=== PATIENT | male | born 1955 | race Caucasian/White ===

== ENCOUNTER 2016-12-07 17:28 | Emergency (ER) | payer OTHER ==
[~2016-12-07] VITALS: Ht 185.4 cm; Wt 82.8 kg
[~2016-12-07 17:28] MED LIST: CMBIN INH; METO25TA56 PO; NICO14DI18 TD; NTRGSL/4 SL
[2016-12-07 17:34] VITALS: TEMP 36.4; Ht 185.4 cm; Wt 82.8 kg
[2016-12-07] MEDS ORDERED: ALBUT/IPRATROP 3MG/0.5MG NEB 3 ML VIAL INH STA (17:56)
[2016-12-07] MEDS ORDERED: METHYLPREDNISOLONE 125 MG VIAL IV STA (17:56)
--- NOTE | 2016-12-07 18:02 | EMERGENCY ROOM VISIT NOTE ---
History First contact with patient: 17:46 Chief Complaint: SHORTNESS OF BREATH Stated Complaint: CHEST PAIN, SOB History of Present Illness The patient is a 61 year old male who presents to the Emergency Room with complaints of dyspnea and chest pain. The patient states that he has had dyspnea for the last month. He states that the shortness of breath is worse at night. He states he gets sweaty at night. The patient states he also has intermittent chest pain on the left side of his chest and occasionally the right side of his chest. This chest pain lasts approximately 30 minutes. He rates his discomfort a 6/10. The patient states that he has having increasing difficulty performing activities of daily living due to his dyspnea. He saw his family doctor and was given prescriptions for an antibiotic, medications for asthma and a medication for his nerves. [facility] for [facility]. He could not see the [facility] or get the prescriptions filled through them so he did not fill any of the medications. The patient has no appointment with the [facility] tomorrow to get reinstated. The patient states that he feels feverish but does not have a documented fever. He denies any abdominal pain, nausea or vomiting. He denies any extremity swelling. The patient is a smoker. The patient drinks alcohol occasionally and states he had a few beers today. He states he has never had a cardiac catheterization. In the past he had been prescribed antihypertensive medications, Combivent and nitroglycerin. The patient has not been taking any of these medications. Review of Systems A 10 system review of systems was completed with positives and pertinent negatives listed in the HPI. Past Medical/Surgical History Medical Problems: (1) Elevated blood pressure reading without diagnosis of hypertension (2) SHORTNESS OF BREATH (3) Wheezing Social History Smoking Status: Current Some Day Smoker Alcohol Use: occasionally Marital Status: Current/Historical Medications No Active Prescriptions or Reported Meds Allergies Coded Allergies: No Known Drug Allergy (Verified Allergy, Unknown, ., 12/07/16) Physical Exam Vital Signs Date Time Temp Pulse Resp B/P (MAP) Pulse Ox O2 Delivery O2 Flow Rate FiO2 12/07/16 19:49 65 20 138/96 96 Room Air 12/07/16 18:55 66 19 134/94 95 Room Air 12/07/16 18:53 93 Room Air 12/07/16 17:34 36.4 82 18 130/77 92 Room Air Physical Exam VITALS: Vitals are noted on the nurse's note and reviewed by myself. Vital signs stable. The patient's oxygen saturation is 92% on room air. He is not tachycardic or febrile. GENERAL: This is a 61-year-old male, in no acute distress, nondiaphoretic, well- developed well-nourished. SKIN: The skin was without rashes, erythema, edema, or bruising. There is no tenting of the skin. Capillary reflex less than 2 seconds. HEAD: Normocephalic atraumatic. EARS: The external ears are normal in appearance. The right ear reveals an effusion with bubbles. There is no significant erythema. There is cerumen impaction in the left external auditory canal. EYES: Pupils equal round and reactive to light and accommodation. Conjunctivae without injection, sclerae without icterus. Extraocular movements intact. NOSE: Patent, turbinates without inflammation or discharge. No sinus tenderness. MOUTH: Mucous membranes dry. Tonsils are not enlarged. Pharynx without erythema or exudate. Uvula midline. Airway patent. Tongue does not deviate. NECK: Supple without nuchal rigidity. No lymphadenopathy. No thyromegaly. Cervical spine is nontender. No JVD. HEART: Regular rate and rhythm without murmurs gallops or rubs. LUNGS: Moderate scattered expiratory wheezes. No retractions or accessory muscle use. ABDOMEN: Positive bowel sounds x 4. Soft, nontender, without masses or organomegaly. MUSCULOSKELETAL: No muscle atrophy, erythema, or edema noted. Full range of motion in all extremities. Normal gait. Strength 5/5 throughout. NEURO: Patient was alert and oriented to person place and time. No focal neurological deficits. Medical Decision & Procedures ER Provider Diagnostic Interpretation: CHEST ONE VIEW PORTABLE HISTORY: cough, dyspnea, atypical chest pain COMPARISON: Chest 06/04/2011. FINDINGS: No pleural effusions. No pneumothorax. The heart is normal in size. Mild bibasilar interstitial thickening remains unchanged. This is likely chronic. No new focal lung consolidations to suggest pneumonia. No evidence for pulmonary edema. Old, healed left-sided rib fractures. Mild eventration of the left hemidiaphragm. IMPRESSION: Chronic changes as described above. No new focal lung consolidations to suggest pneumonia. Laboratory Results 12/07/16 18:15 Red Blood Count 4.73, Mean Corpuscular Volume 100.4, Mean Corpuscular Hemoglobin 35.3, Mean Corpuscular Hemoglobin Concent 35.2, Mean Platelet Volume 9.9, Neutrophils (%) (Auto) 38.8, Lymphocytes (%) (Auto) 30.6, Monocytes (%) ( Auto) 8.7, Eosinophils (%) (Auto) 20.4, Basophils (%) (Auto) 1.4, Neutrophils # (Auto) 2.85, Lymphocytes # (Auto) 2.25, Monocytes # (Auto) 0.64, Eosinophils # ( Auto) 1.50, Basophils # (Auto) 0.10 12/07/16 18:15 Test 12/07/16 18:15 White Blood Count 7.35 K/uL (4.8-10.8) Red Blood Count 4.73 M/uL (4.7-6.1) Hemoglobin 16.7 g/dL (14.0-18.0) Hematocrit 47.5 % (42-52) Mean Corpuscular Volume 100.4 fL (80-100) Mean Corpuscular Hemoglobin 35.3 pg (25-34) Mean Corpuscular Hemoglobin Concent 35.2 g/dl (32-36) Platelet Count 184 K/uL (130-400) Mean Platelet Volume 9.9 fL (7.4-10.4) Neutrophils (%) (Auto) 38.8 % Lymphocytes (%) (Auto) 30.6 % Monocytes (%) (Auto) 8.7 % Eosinophils (%) (Auto) 20.4 % Basophils (%) (Auto) 1.4 % Neutrophils # (Auto) 2.85 K/uL (1.4-6.5) Lymphocytes # (Auto) 2.25 K/uL (1.2-3.4) Monocytes # (Auto) 0.64 K/uL (0.11-0.59) Eosinophils # (Auto) 1.50 K/uL (0-0.5) Basophils # (Auto) 0.10 K/uL (0-0.2) RDW Standard Deviation 52.5 fL (36.4-46.3) RDW Coefficient of Variation 14.2 % (11.5-14.5) Immature Granulocyte % (Auto) 0.1 % Immature Granulocyte # (Auto) 0.01 K/uL (0.00-0.02) Prothrombin Time 11.0 SECONDS (9.0-12.0) Prothromb Time International Ratio 1.0 (0.9-1.1) Activated Partial Thromboplast Time 27.6 SECONDS (21.0-31.0) Partial Thromboplastin Ratio 1.1 Anion Gap 9.0 mmol/L (3-11) Est Creatinine Clear Calc Drug Dose 127.0 ml/min Estimated GFR () 118.8 Estimated GFR (Non- 102.5 BUN/Creatinine Ratio 11.7 (10-20) Calcium Level 8.4 mg/dl (8.5-10.1) Total Bilirubin 0.5 mg/dl (0.2-1) Aspartate Amino Transf (AST/SGOT) 16 U/L (15-37) Alanine Aminotransferase (ALT/SGPT) 22 U/L (12-78) Alkaline Phosphatase 50 U/L (45-117) Total Creatine Kinase 83 U/L (39-308) Creatine Kinase MB 2.5 ng/ml (0.5-3.6) Creatine Kinase MB Ratio 3.0 (0-3.0) Troponin I 0.024 ng/ml (0-0.045) Total Protein 7.5 gm/dl (6.4-8.2) Albumin 3.8 gm/dl (3.4-5.0) Globulin 3.7 gm/dl (2.5-4.0) Albumin/Globulin Ratio 1.0 (0.9-2) Lipase 188 U/L (73-393) Medications Administered Medications (Trade) Dose Ordered Sig/Leydi Route Start Time Stop Time Status Last Admin Dose Admin Albuterol/ Ipratropium (Duoneb) 3 ml NOW STAT INH 12/07/16 17:56 12/07/16 17:58 DC 12/07/16 18:17 3 ML Methylprednisolone Sodium Succinate (Solu-Medrol IV) 80 mg NOW STAT IV 12/07/16 17:56 12/07/16 17:58 DC 12/07/16 18:20 80 MG Ceftriaxone Sodium (Rocephin Inj) 1 gm NOW STAT IV 12/07/16 18:59 12/07/16 19:01 DC 12/07/16 19:07 1 GM Dexamethasone Sodium Phosphate (Decadron Inj) 6 mg NOW ONCE IV 12/07/16 19:00 12/07/16 19:01 DC 12/07/16 19:07 6 MG Albuterol (Ventolin Hfa Inhaler) 2 puffs Q4R STAT INH 12/07/16 18:59 12/07/16 19:01 DC 12/07/16 19:07 2 PUFFS Procedure The patient was monitored on a director cost. They maintained a normal sinus rhythm without ectopy. ECG Indication: SOB/dyspnea Rate (beats per minute): 59 Rhythm: sinus bradycardia Findings: no acute ischemic change Change: no significant change ED Course The patient was seen and examined. Previous visits were reviewed. The patient does not have a fever or leukocytosis. He does not have any significant electrolyte abnormality. Troponin is not elevated. INR is 1. Lipase is not elevated. EKG does not reveal any acute arrhythmia or ischemia Chest x-ray reveals chronic changes but no acute finding The patient was given a DuoNeb and upon re-examination, wheezing had improved moderately The patient was given 80 mg IV Solu-Medrol He was given 6 mg IV Decadron prior to discharge as he stated he could not get any of his prescriptions filled He was given 1 g IV Rocephin He was given albuterol inhaler The patient presents to the emergency department with dyspnea. The patient has significant expiratory wheezes on exam. The patient had seen his family doctor recently but was not able to fill any of the prescriptions due to cost. [facility] that [facility] going [facility] be [facility]ishing with them tomorrow and then his medications should be covered. He was given medication to get him through until tomorrow including Decadron, Rocephin and an inhaler. The patient should return with any worsening symptoms. He should return immediately with any persistent chest pain, shortness of breath. The case was discussed with Dr. Rocha who agrees with the assessment and treatment plan. Medication Reconciliation: I attest that I have personally reviewed the patient' s current medication list. Blood pressure screening: The patient was found to have normal blood pressure on screening and does not require follow-up Medical Decision DIFFERENTIAL DIAGNOSIS: Aortic dissection, myocarditis, pericarditis, cervical disc disease, costochondritis, herpes zoster, rib fracture, pleuritis, pneumonia , pulmonary embolus, tension pneumothorax, anxiety disorder, somatoform disorder , choledocholithiasis, status, esophagitis, esophageal spasm, esophageal reflux , esophageal rupture, pancreatitis, peptic ulcer disease, cardiac ischemia, ST elevation CA, acute coronary syndrome, arrhythmia, coronary artery vasospasm. vavular heart disease, coronary artery disease, among others. Impression Primary Impression: Wheezing Additional Impression: SHORTNESS OF BREATH Departure Information Dispostion Home / Self-Care Condition GOOD Prescriptions No Active Prescriptions or Reported Meds Referrals No Doctor, Assigned (PCP) Patient Instructions COPD, My [facility] Additional Instructions [facility] with [facility] as schedule Use the inhaler 1-2 puffs every 4-6 hours for wheezing/tightness Return with chest pain, worsening shortness of breath or generalized worsening symptoms Problem Qualifiers
--- NOTE | 2016-12-07 18:14 | DIAGNOSTIC IMAGING REPORT ---
CHEST ONE VIEW PORTABLE HISTORY: cough, dyspnea, atypical chest pain COMPARISON: Chest 06/04/2011. FINDINGS: No pleural effusions. No pneumothorax. The heart is normal in size. Mild bibasilar interstitial thickening remains unchanged. This is likely chronic. No new focal lung consolidations to suggest pneumonia. No evidence for pulmonary edema. Old, healed left-sided rib fractures. Mild eventration of the left hemidiaphragm. IMPRESSION: Chronic changes as described above. No new focal lung consolidations to suggest pneumonia. Electronically signed by: Shaquille Bailey M.D. 12/07/2016 6:12 PM Dictated Date/Time: 12/07/2016 6:10 PM
[2016-12-07 18:26] LABS: BASO % 1.4 %; COMPLETE YES; EOS % 20.4 %; HEMATOCRIT 47.5 % (42-52); IG% 0.1 %; LYMPH % 30.6 %; LYMPH ABS # 2.25 K/uL (1.2-3.4); MEAN CELL VOLUME 100.4 fL (80-100); MEAN CORPUSCULAR HEMOGLOBIN 35.3 pg (25-34); MEAN CORPUSCULAR HGB CONC 35.2 g/dl (32-36); MEAN PLATELET VOLUME 9.9 fL (7.4-10.4); MONO % 8.7 %; NEUT % 38.8 %; PLATELET COUNT 184 K/uL (130-400); RED BLOOD COUNT 4.73 M/uL (4.7-6.1); WHITE BLOOD COUNT 7.35 K/uL (4.8-10.8)
[2016-12-07 18:41] LABS: BUN/CREATININE RATIO 11.7 (10-20); CALCIUM 8.4 mg/dl (8.5-10.1); CREATININE 0.69 mg/dl (0.60-1.40); POTASSIUM 3.9 mmol/L (3.5-5.1)
[2016-12-07 18:44] LABS: PARTIAL THROMBOPLASTIN RATIO 1.1
[2016-12-07] MEDS ORDERED: ALBUTEROL HFA 8 GM INHALER INH STA (18:59)
[2016-12-07] MEDS ORDERED: CEFTRIAXONE SOD INJ 1 GM ADDVIAL IV STA (18:59)
[2016-12-07] MEDS ORDERED: DEXAMETHASONE SOD INJ 10 MG/ML VIAL IV ONE (19:00)
[2016-12-07 19:49] VITALS: BP 138/96; PULSE 65; O2SAT 96
[2017-01-29] MEDS ORDERED: HYDR-3124 PO ×2 (13:06)
[2017-01-29] MEDS ORDERED: ASPI81TA28 PO (13:06)
[2017-01-29] MEDS ORDERED: SYMIN160 INH (13:06)
[2017-01-29] MEDS ORDERED: IPRASOL4 INH (13:06)
[2017-01-29] MEDS ORDERED: VNTHFA/IN INH (13:06)
== END 2016-12-07 19:54 | disposition home or self-care (01) ==
LOC: C.EDB 17:30
DX: R06.02 Shortness of breath (principal); F17.210 Nicotine dependence, cigarettes, uncomplicated; J45.909 Unspecified asthma, uncomplicated

== ENCOUNTER → 2017-01-31 | Day surgery (SDC) | payer OTHER ==
[2017-01-29 13:07] VITALS: Ht 185.4 cm; Wt 77.3 kg
[~2017-01-31] VITALS: Ht 185.4 cm; Wt 77.3 kg
[~2017-01-31] MED LIST changes: +ASPI81TA28 PO; -CMBIN INH; +HYDR-3124 PO; +IPRASOL4 INH; +LIDOCAINE HCL 2% 2 ML VIAL (20MG/ML) ONE; -METO25TA56 PO; -NICO14DI18 TD; -NTRGSL/4 SL; +PROPOFOL IV EMULSION 10 MG/ML 20 ML VIAL IV ONE; +SODIUM CHLORIDE 0.9% 500ML 500 ML IV ONE; +SYMIN160 INH; +VNTHFA/IN INH
--- NOTE | 2017-01-31 08:22 | Endo History and Physical ---
History & Physical Date of Service: Jan 31, 2017. Chief Complaint: Referring Physician: History of Present Illness 61 yo presenting for evaluation of + FOBT, no hx of colonoscopy or savanna bleeding. Past Surgical History Hx Cardiac Surgery: No Hx Internal Defibrillator: No Hx Pacemaker: No Hx Abdominal Surgery: No Hx of Implantable Prosthesis: No Hx Cancer Surgery: No Hx Thoracic Surgery: No Hx Orthopedic: No Hx Urinary Tract Surgery: No Family History None Social History Smoking Status: Current Every Day Smoker Hx Substance Use: No Hx Alcohol Use: No Allergies Coded Allergies: No Known Drug Allergy (Verified Allergy, Unknown, ., 01/29/17) Current Medications Reported Home Medications Medications Dose Route/Sig Max Daily Dose Days Date Category Aspirin Ec (Aspirin) 81 Mg Tab 81 Mg PO QAM 01/29/17 Reported Atarax (Hydroxyzine Hcl) 25 Mg Tab 2 Tabs PO HS 01/29/17 Reported Atarax (Hydroxyzine Hcl) 25 Mg Tab 0.5 Tab PO QAM 01/29/17 Reported Symbicort 160/4.5 Inhaler (Budesonide/Formoterol Fumarate) Aero 2 Puffs INH HS 01/29/17 Reported Duoneb (Ipratropium-Albuterol) 3 Ml Nebu 1 Treatment INH Q4H PRN 01/29/17 Reported Ventolin Hfa (Albuterol) 200 Puffs/97360 Mcg Aers 2-4 Puffs INH Q6H PRN 01/29/17 Reported Vital Signs Weight (Kilograms): 77.27 Height (Feet): 6 Height (Inches): 1 Physical Exam General Appearance: WD/WN, no apparent distress Respiratory/Chest: Respiratory effort: no dyspnea Auscultation: breath sounds normal, CTA except as noted Cardiovascular: Apical Impulse: not displaced Heart Auscultation: RRR, normal S1 Abdomen: Bowel Sounds: normal Inspection & Palpation: soft, non-distended Assessment and Plan 61 yo presenting for evaluation of positive FOBT and presenting for colonoscopy
--- NOTE | 2017-01-31 09:01 | GI REPORT ---
Procedure Date: 01/31/2017 8:29 AM Procedure: Colonoscopy Indications: Screening for colorectal malignant neoplasm, Incidental - Heme positive stool Medicines: General Anesthesia Complications: No immediate complications. Estimated blood loss: None. Estimated Blood Loss: Estimated blood loss: none. Procedure: Pre-Anesthesia Assessment: - Pre-Anesthesia Assessment: - Prior to the procedure, a History and Physical was performed, and patient medications, allergies and sensitivities were reviewed. The patient's tolerance of previous anesthesia was reviewed. Please see [employer] for complete details. - The risks and benefits of the procedure and the sedation options and risks were discussed with the patient. All questions were answered and informed consent was obtained. - Patient identification and proposed procedure were verified prior to the procedure by the physician and the nurse. The procedure was verified in the pre-procedure area in the procedure room. After obtaining informed consent, the endoscope was passed carefully and meticuously under direct vision and only advanced when the lumen was clearly identified, C02 insuflation was utilized throughout the entirity of the procedure. Throughout the procedure, the patient's blood pressure, pulse, and oxygen saturations were monitored continuously. After I obtained informed consent, the scope was passed under direct vision. Throughout the procedure, the patient's blood pressure, pulse, and oxygen saturations were monitored continuously. The scope was introduced through the anus and advanced to the terminal ileum, with identification of the appendiceal orifice and IC valve. The colonoscopy was performed without difficulty. The patient tolerated the procedure well. The quality of the bowel preparation was fair. Findings: A 8 mm polyp was found in the sigmoid colon. The polyp was pedunculated. The polyp was removed with a hot snare. Resection and retrieval were complete. Multiple small-mouthed diverticula were found in the sigmoid colon. The terminal ileum appeared normal. The exam was otherwise without abnormality on direct and retroflexion views. Internal hemorrhoids were found during retroflexion. Impression: - One 8 mm polyp in the sigmoid colon, removed with a hot snare. Resected and retrieved. - Diverticulosis in the sigmoid colon. - The examined portion of the ileum was normal. - The examination was otherwise normal on direct and retroflexion views. - Internal hemorrhoids. Recommendation: - Discharge patient to home (with escort). - Repeat colonoscopy in 3 years for surveillance. - As prep quality was suboptimal. Glen Quispe MD 01/31/2017 9:01:20 AM This report has been signed electronically. Note Initiated On: 01/31/2017 8:29 AM I attest to the content of the Intraoperative Record and orders documented therein, exceptions below
--- NOTE | 2017-01-31 09:02 | Discharge Instructions ---
Endoscopy Patient Instructions Date / Procedure(s) Performed Jan 31, 2017. Colonoscopy Allergy Information Coded Allergies: No Known Drug Allergy (Verified Allergy, Unknown, ., 01/29/17) Discharge Date / Findings Jan 31, 2017. - One 8 mm polyp in the sigmoid colon, removed with a hot snare. Resected and retrieved. - Diverticulosis in the sigmoid colon. - The examined portion of the ileum was normal. - The examination was otherwise normal on direct and retroflexion views. - Internal hemorrhoids. - Repeat colonoscopy in 3 years Medication Instructions Stopped Medication(s): stopped ASA Sunday Provider Instructions Activity Restrictions - No exercising or heavy lifting for 24 hours. - Do not drink alcohol the day of the procedure. - Do not drive a car or operate machinery until the day after the procedure. - Do not make any important decisions or sign important papers in 24 hours after the procedure. Following Day: - Return to full activity which may include returning to work/school. Diet Start your diet with liquids and light foods (jello, soup, juice, toast). Then eat your usual diet if not nauseated. Treatment For Common After Affects For mild abdominal pain, bloating, or excessive gas: - Rest - Eat lightly - Lie on right side Follow-Up Information Follow-up with Dr. Blake MONROE as scheduled Anesthesia Information What You Should Know You have had a procedure that required some medicine to reduce anxiety and discomfort. This treatment is called moderate sedation. After receiving the treatment, you may be sleepy, but you will be able to breathe on your own. The effects of the treatment may last for several hours. Follow these instructions along with Activity/Diet recommendations noted above: * Do NOT do anything where dizziness or clumsiness would be dangerous. * Rest quietly at home today, then you can be up and about tomorrow. * Have a responsible person stay with you the rest of today. * You may have had an I.V. today. If so, you may take the dressing off later today. Recommendations Call your doctor if: * Trouble breathing * Continuous vomiting for more than 24 hours * Temperature above 101 degrees * Severe abdominal pain or bloating * Pain not relieved by pain medicine ordered * There is increased drainage or redness from any incision * A large amount of rectal bleeding greater than 2-3 tablespoons. (If you had a polyp/s removed or have hemorrhoids, a small amount of blood - from the rectum is to be expected.) * You have any unanswered questions or concerns. IN THE EVENT OF A SERIOUS EMERGENCY, GO TO THE NEAREST EMERGENCY ROOM Your discharge instructions were prepared by provider Glen Quispe. Patient Instructions Signature Page Manav Del Real Patient (or Guardian) Signature/Date: I have read and understand the instructions given to me by my caregivers. Caregiver/RN/Doctor Signature/Date: The above-named patient and/or guardian has received patient instructions on this date. + Original Patient Signature Page (only) stays with chart. Please make copy for patient.
--- NOTE | 2017-01-31 09:19 | Anesthesiology Progress Note ---
Anesthesia Post Op Note Date & Time Jan 31, 2017 at 09:19 Vital Signs Pain Intensity: 0 Vital Signs Past 12 Hours Date Time Temp Pulse Resp B/P (MAP) Pulse Ox O2 Delivery O2 Flow Rate FiO2 01/31/17 09:01 77 20 124/87 (99) 98 Room Air 01/31/17 08:23 36.3 79 20 153/99 (117) 97 Room Air Notes Mental Status: alert / awake / arousable, participated in evaluation Pt Amnestic to Procedure: Yes Nausea / Vomiting: adequately controlled Pain: adequately controlled Airway Patency, RR, SpO2: stable & adequate BP & HR: stable & adequate Hydration State: stable & adequate Anesthetic Complications: no major complications apparent
[2017-01-31 09:31] VITALS: BP 123/88; PULSE 57; O2SAT 96
== END | disposition home or self-care (01) ==
LOC: C.GI 07:47
PROVIDERS: ATTEND Internal Medicine
DX: Z12.11 Encounter for screening for malignant neoplasm of colon (principal); D12.5 Benign neoplasm of sigmoid colon; K57.30 Diverticulosis of large intestine without perforation or abscess without bleeding; K64.8 Other hemorrhoids; F17.200 Nicotine dependence, unspecified, uncomplicated; Z79.82 Long term (current) use of aspirin; Z79.899 Other long term (current) drug therapy